=== PATIENT | female | born 1985 | race Caucasian/White ===

== ENCOUNTER → 2023-07-29 10:47 | Outpatient (REF) | payer BC, SELFPAY | LOC: PNTC 10:47 | PROVIDERS: ATTENDING PHYSICIAN Obstetrics & Gynecology | DX: O35.DXX0 Maternal care for other (suspected) fetal abnormality and damage, fetal gastrointestinal anomalies, not applicable or unspecified (principal); O09.529 Supervision of elderly multigravida, unspecified trimester | CPT/HCPCS: 76811 ==

== ENCOUNTER → 2023-08-26 13:41 | Outpatient (REF) | payer BC, SELFPAY | LOC: PNTC 13:41 | PROVIDERS: ATTENDING PHYSICIAN Obstetrics & Gynecology | DX: O28.3 Abnormal ultrasonic finding on antenatal screening of mother (principal) | CPT/HCPCS: 76816 ==

== ENCOUNTER → 2023-09-20 09:18 | Outpatient (REF) | payer BC, SELFPAY | LOC: REG 09:18 | PROVIDERS: ATTENDING PHYSICIAN Obstetrics & Gynecology | DX: Z34.90 Encounter for supervision of normal pregnancy, unspecified, unspecified trimester (principal) | CPT/HCPCS: 36415; 86850; 86900; 86901; J2790 ==

== ENCOUNTER → 2023-10-01 15:29 | Outpatient (REF) | payer BC, SELFPAY | LOC: PNTC 15:29 | PROVIDERS: ATTENDING PHYSICIAN Obstetrics & Gynecology | DX: O09.529 Supervision of elderly multigravida, unspecified trimester (principal) | CPT/HCPCS: 76816 ==

== ENCOUNTER → 2023-11-04 13:47 | Outpatient (REF) | payer BC, SELFPAY | LOC: PNTC 13:47 | PROVIDERS: ATTENDING PHYSICIAN Obstetrics & Gynecology | DX: O09.529 Supervision of elderly multigravida, unspecified trimester (principal) | CPT/HCPCS: 76816 ==

== ENCOUNTER → 2023-12-01 10:08 | Outpatient (REF) | payer BC, SELFPAY | LOC: PNTC 10:08 | PROVIDERS: ATTENDING PHYSICIAN Obstetrics & Gynecology | DX: O24.419 Gestational diabetes mellitus in pregnancy, unspecified control (principal) | CPT/HCPCS: 36415; 76816 ==

== ENCOUNTER 2023-12-10 07:32 | Inpatient (IN) | payer BC, SELFPAY ==
[2023-12-10 07:42] VITALS: BP 129/77; BMI 33.7
[2023-12-10 08:21] LABS: Glucose - Point of Care 101 mg/dl (70-99)
[2023-12-10 08:42] LABS: % Basophils 0.5 % (0-2); % Eosinophils 1.6 % (0-6); % Immature Granulocytes 1.3 % (0-0.5); % Lymphocytes 21.9 % (20.5-51.1); % Neutrophils 68.7 % (42.2-75.2); Absolute Eosinophils 0.1 10^3/uL (0-0.7); Absolute Immature Granulocytes 0.1 10^3/uL (0-0.05); Absolute Lymphocytes 1.8 10^3/uL (1.2-3.4); Absolute Monocytes 0.5 10^3/uL (0.1-0.6); Absolute Neutrophils 5.6 10^3/uL (1.4-6.5); Hematocrit 34.2 % (37.0-47.0); Hemoglobin 11.3 g/dL (12.0-16.0); Mean Corpuscular Hgb 27.4 pg (27.0-31.0); Mean Platelet Volume 11.4 fL (7.4-10.4); Nucleated Red Blood Cells % 0 %; Platelet Count 221 10^3/uL (130-400); Red Blood Cell Count 4.12 10^6/uL (4.20-5.40); Red Cell Dist. Width 15.2 % (11.5-14.5); White Blood Cell Count 8.2 10^3/uL (4.8-10.8)
[2023-12-10] MEDS: PENICILLIN 110 UNITS IV (08:50)
[2023-12-10] MEDS: LR 1000 IV ×3 (08:50→18:13)
[2023-12-10] MEDS: PITOCIN 30 UNITS/NSS 500 ML IV (09:15)
[2023-12-10 12:29] LABS: Glucose - Point of Care 86 mg/dl (70-99)
[2023-12-10] MEDS: PENICILLIN 55 UNITS IV ×3 (13:00→21:19)
[2023-12-10 16:26] LABS: Glucose - Point of Care 79 mg/dl (70-99)
[2023-12-10 19:38] LABS: Glucose - Point of Care 87 mg/dl (70-99)
[2023-12-10 23:51] LABS: Glucose - Point of Care 110 mg/dl (70-99)
[2023-12-11] MEDS: SUBLIMAZE 100 MCG EPIDURAL (01:36)
[2023-12-11] MEDS: FENTANYL/BUPIVACAINE 100 EPIDURAL (01:36)
[2023-12-11] MEDS: LR 1000 IV (01:52)
[2023-12-11 02:02] LABS: Glucose - Point of Care 88 mg/dl (70-99)
[2023-12-11] MEDS: PENICILLIN 55 UNITS IV (02:03)
[2023-12-11 04:04] LABS: Glucose - Point of Care 93 mg/dl (70-99)
[2023-12-11] MEDS: PITOCIN 30 UNITS/NSS 500 ML IV (04:45)
[2023-12-11] MEDS: MOTRIN 600 MG PO (20:17)
[2023-12-12] MEDS: PENICILLIN IV ×3 (01:08→05:42)
[2023-12-12 04:33] LABS: Hematocrit 32.3 % (37.0-47.0); Hemoglobin 10.8 g/dL (12.0-16.0)
[2023-12-12] MEDS: HYPERRHO S-D 1500 UNIT IM (09:18)
[2023-12-12 11:12] LABS: Syphilis/T. pallidum Ab Reflex Negative (Negative)
== END 2023-12-12 13:23 | disposition home or self-care (01) | DRG 807 ==
LOC: LDRP 07:32
PROVIDERS: Obstetrics & Gynecology; ADMITTING PHYSICIAN Obstetrics & Gynecology
PROC: 3E033VJ Introduction of Other Hormone into Peripheral Vein, Percutaneous Approach (ICD-10-PCS; 2023-12-10)
PROC: 10907ZC Drainage of Amniotic Fluid, Therapeutic from Products of Conception, Via Natural or Artificial Opening (ICD-10-PCS; 2023-12-11)
PROC: 10E0XZZ Delivery of Products of Conception, External Approach (ICD-10-PCS; 2023-12-11)
PROC: 0HQ9XZZ Repair Perineum Skin, External Approach (ICD-10-PCS; 2023-12-11)
PROC: 3E0234Z Introduction of Serum, Toxoid and Vaccine into Muscle, Percutaneous Approach (ICD-10-PCS; 2023-12-12)
DX: O24.420 Gestational diabetes mellitus in childbirth, diet controlled (principal); Z37.0 Single live birth; Z3A.39 39 weeks gestation of pregnancy; O70.0 First degree perineal laceration during delivery; O99.824 Streptococcus B carrier state complicating childbirth; O99.214 Obesity complicating childbirth; Z23 Encounter for immunization
CPT/HCPCS: 88307; 82962; 85014; 85018; 85025; 85461; 86780; 86850; 86870; 86900; 86901; J2790